=== PATIENT | female | born 1985 | race African-American/Black ===

== ENCOUNTER 2017-11-05 14:43 | Emergency (ER) | payer BC ==
[~2017-11-05] VITALS: Ht 154.9 cm; Wt 72.1 kg
[~2017-11-05 14:43] MED LIST: ALEVE220 MG; ATIVAN0.5 MG PO; CARAFATE 1 GM TA1 G1 PO; CIPRO250 MG PO; COLACE100 MG PO; FLEXERIL PO; IBUPROFEN 800800 M1; MIRALAX17 GM PO; NAPROSYN500 MG PO; NOHOMEMEDICATIONS; NORCO 5-325 TA1 EACH PO; PEPCID20 MG PO; POTASSIUM20 PO; PREDNISONE50 MG PO; SLOW-MAG64 MG PO; ZYRTEC10 M5
[2017-11-05 15:21] LABS: URINE BILIRUBIN NEGATIVE (Negative); URINE BLOOD 1+ (Negative); URINE CLARITY CLEAR; URINE COLOR YELLOW; URINE GLUCOSE-RANDOM* NEGATIVE (Negative); URINE KETONES NEGATIVE (Negative); URINE LEUKOCYTES-REFLEX NEGATIVE (Negative); URINE NITRITE-REFLEX NEGATIVE (Negative); URINE PROTEIN (DIPSTICK) NEGATIVE (Negative); URINE SPECIFIC GRAVITY 1.025 (1.005-1.035); URINE UROBILINOGEN 0.2 E.U./dl (0.2-1.0)
[2017-11-05 15:31] LABS: CASTS None Seen /LPF (None Seen); CRYSTALS None Seen /LPF (None Seen); SQUAMOUS 4-10 Moderate /LPF (0-3); URINE RBC 0-2 Rare /HPF (0-2); URINE WBC-REFLEX 0-5 Rare /HPF (0-5)
[2017-11-05] MEDS ORDERED: MOBIC15 MG PO (15:58)
[2017-11-05 16:12] VITALS: BP 157/98
[2017-11-06 14:08] LABS: NEISSERIA GONORRHEA-PCR Negative (Negative)
== END 2017-11-05 16:12 | disposition home or self-care (01) ==
LOC: ER 14:43
PROVIDERS: Physician Assistant
DX: J02.0 Streptococcal pharyngitis (principal); N89.8 Other specified noninflammatory disorders of vagina

== ENCOUNTER 2017-11-08 11:46 | Emergency (ER) | payer BC ==
[~2017-11-08] VITALS: Ht 154.9 cm; Wt 72.6 kg
--- NOTE | ~2017-11-08 | EKG ---
[address] [place] [address] ELECTROCARDIOGRAM REPORT Name: DOMINGA MATTSON Room #: DEP [facility]#: [id number] Admission: 11/08/17 Attend Phys: Discharge: 11/08/17 Date of : 89 Report #: [id number] THIS REPORT FOR: //name// [facility] ED Test Date: 2017-11-08 Test Time: 12:02:49 Pat Name: DOMINGA MATTSON Department: Room: Gender: F [employer] Assistant: Chay TARIQ : 1985 Requested By: Royal Pardo Order Number: [id number] MD: Vincenzo Mendoza Measurements Intervals [place] Rate: 72 P: -3 NM: 162 QRS: 25 QRSD: 73 T: 28 QT: 358 QTc: 392 Interpretive Statements Sinus rhythm No significant abnormality Compared to ECG 06/04/2017 22:36:16 No significant changes Electronically Signed On 11-09-2017 12:57:38 CDT by Vincenzo Mendoza [email or web address] <ELECTRONICALLY SIGNED> By: Vincenzo Mendoza MD, [facility] 11/09/17 1257 D: [id number] Vincenzo Mendoza MD, FAC /EPI
[~2017-11-08 11:46] MED LIST changes: +MOBIC15 MG PO
[2017-11-08] MEDS ORDERED: NAPROSYN500 MG PO (11:54)
[2017-11-08 13:08] VITALS: BP 121/81
== END 2017-11-08 13:09 | disposition home or self-care (01) ==
LOC: ER 11:46
DX: R07.89 Other chest pain (principal)

== ENCOUNTER 2018-01-28 14:10 | Emergency (ER) | payer OTHER ==
[~2018-01-28] VITALS: Ht 154.9 cm; Wt 73.0 kg
[2018-01-28 14:30] LABS: URINE BILIRUBIN NEGATIVE (Negative); URINE BLOOD NEGATIVE (Negative); URINE CLARITY SL CLOUDY; URINE COLOR YELLOW; URINE GLUCOSE-RANDOM* NEGATIVE (Negative); URINE KETONES NEGATIVE (Negative); URINE NITRITE-REFLEX NEGATIVE (Negative); URINE PROTEIN (DIPSTICK) TRACE (Negative)
[2018-01-28 14:31] LABS: URINE LEUKOCYTES-REFLEX 1+ (Negative)
[2018-01-28 14:42] LABS: BACTERIA-REFLEX 1-9 Few /HPF (None Seen); CASTS None Seen /LPF (None Seen); CRYSTALS None Seen /LPF (None Seen); MUCUS >6 Heavy strn/LPF (None Seen); SQUAMOUS >10 Many /LPF (0-3); URINE RBC 3-10 Few /HPF (0-2)
[2018-01-28 16:27] LABS: ABSOLUTE NEUTROPHILS 6.5 thou/uL (1.4-8.2); BASOPHILS 0.7 % (0.0-2.0); EOSINOPHILS 0.6 % (0.0-3.0); HEMATOCRIT 38.5 % (37.0-47.0); HEMOGLOBIN 13.3 gm/dL (12.0-15.0); LYMPHOCYTES 21.9 % (24.0-44.0); MCH 30.2 pg (26.0-34.0); MCHC 34.4 g/dL (28.0-37.0); MCV 87.8 fL (80.0-100.0); MONOCYTES 5.9 % (1.0-8.0); PLATELET COUNT 286 thou/uL (150-400); POLYS 70.9 % (36.0-66.0); RBC 4.38 mil/uL (4.20-5.00); RDW 13.7 % (10.5-14.5); WBC 9.2 thou/uL (4.0-11.0)
[2018-01-28 16:36] LABS: CALCIUM 9.4 mg/dL (8.5-10.1); CREATININE 0.8 mg/dL (0.6-1.0); POTASSIUM 3.6 mmol/L (3.5-5.1)
[2018-01-28 16:41] LABS: ALBUMIN 4.5 g/dL (3.4-5.0); TOTAL BILIRUBIN 0.3 mg/dL (<0.1-1.0)
[2018-01-28] MEDS ORDERED: BACTRIM DS TAB1 EACH PO (16:51)
[2018-01-28] MEDS ORDERED: TRAMADOL 50 MG50 MG PO (16:51)
[2018-01-28] MEDS ORDERED: NAPROSYN500 MG PO (16:51)
[2018-01-28 16:56] VITALS: BP 134/87
== END 2018-01-28 19:18 | disposition home or self-care (01) ==
LOC: ER 14:10
PROVIDERS: Emergency Medicine
DX: N12 Tubulo-interstitial nephritis, not specified as acute or chronic (principal); R19.7 Diarrhea, unspecified